=== PATIENT | female | born 1960 | race African-American/Black ===

== ENCOUNTER 2017-05-18 08:08 | Emergency (ER) | payer BC | END 2017-05-18 09:13 | disposition home or self-care (01) | LOC: D.ER 08:08 | DX: J01.90 Acute sinusitis, unspecified (principal); R11.10 Vomiting, unspecified; R19.7 Diarrhea, unspecified; I10 Essential (primary) hypertension; F17.200 Nicotine dependence, unspecified, uncomplicated ==

== ENCOUNTER 2020-09-20 02:36 | Emergency (ER) | payer BC ==
[~2020-09-20] VITALS: Ht 172.7 cm; Wt 97.3 kg
[2020-09-20 02:43] VITALS: Ht 172.7 cm; Wt 97.3 kg
[2020-09-20] MEDS ORDERED: NORVASC5 MG PO (02:45)
[2020-09-20] MEDS ORDERED: TRAZODONE HCL150 MG PO (02:46)
[2020-09-20] MEDS ORDERED: HYDROCHLOROTH12.5 M1 PO (02:47)
[2020-09-20] MEDS ORDERED: ANASTROZOLE PO (02:47)
[2020-09-20] MEDS ORDERED: ASCORBIC ACID500 MG PO (02:48)
[2020-09-20] MEDS ORDERED: VITAMIN D 22000 UNIT PO (02:48)
[2020-09-20 03:16] LABS: BASOPHILS 1.5 % (0-2); EOSINOPHILS 1.5 % (0-7); HEMOGLOBIN 13.6 g/dL (12-16); LYMPHOCYTES 31.7 % (15-50); MCH 29.4 pg (26.0-34.0); MCHC 33.1 g/dL (31.0-37.0); MCV 88.7 fL (80.0-100.0); MEAN PLATELET VOLUME 8.4 fL (7.4-10.4); MONOCYTES 8.4 % (2-11); NEUTROPHILS 56.9 % (40-80); PLATELET COUNT 242 10x3/uL (130-400); RBC 4.62 10x6/uL (4.00-5.40); RDW 13.8 % (11.5-14.5); WBC 10.8 10x3/uL (4.8-10.8)
[2020-09-20 03:26] LABS: BILIRUBIN NEGATIVE (NEGATIVE); HCG URINE NEGATIVE (NEGATIVE); KETONE NEGATIVE (NEGATIVE); NITRITE NEGATIVE (NEGATIVE); UROBILINOGEN NORMAL mg/dL (< 2)
[2020-09-20 03:30] LABS: CALC OSMOLALITY 282 mosm/kg (275-300); CALCIUM 9.2 mg/dL (8.5-10.1); CARBON DIOXIDE 25.8 mmol/L (21.0-32.0); CHLORIDE - SERUM 103 mmol/L (98-107); CREATININE - SERUM 0.9 mg/dL (0.6-1.3); GLUCOSE 102 mg/dL (74-106); POTASSIUM - SERUM 4.1 mmol/L (3.5-5.1); SODIUM 141 mmol/L (136-145); UREA NITROGEN 19 mg/dL (7-18); eGFR NON AFRICAN AMERICAN 68 mL/min (90-120)
[2020-09-20 03:38] LABS: ALBUMIN 3.6 g/dL (3.4-5.0); ALKALINE PHOSPHATASE 83 U/L (30-120); ALT (SGPT) 33 U/L (10-68); AMYLASE - SERUM 57 U/L (25-115); BILIRUBIN - TOTAL 0.31 mg/dL (0.2-1.3); LIPASE 66 U/L (73-393); PROTEIN - SERUM 7.7 g/dL (6.4-8.2)
[2020-09-20 03:39] LABS: TROPONIN-I < 0.017 ng/mL (0.000-0.060)
[2020-09-20 06:00] VITALS: BP 147/76
[2020-09-20] MEDS ORDERED: AUGMENTIN 875-11 TAB PO (08:45)
[2020-09-20] MEDS ORDERED: IBUPROFEN800 MG PO (08:45)
[2020-09-20] MEDS ORDERED: LEVSIN/ANASP0.125 MG PO (08:45)
[2020-09-20] MEDS ORDERED: ACETAMINOPHEN500 M1 PO (08:45)
== END 2020-09-20 08:59 | disposition home or self-care (01) ==
LOC: D.ER 02:36
PROVIDERS: Family Medicine
DX: K63.89 Other specified diseases of intestine (principal); R10.32 Left lower quadrant pain; I10 Essential (primary) hypertension; Z72.0 Tobacco use